=== PATIENT | male | born 1970 | race Caucasian/White ===

== ENCOUNTER 2024-02-03 12:39 | Emergency (ER) | payer OTHER ==
[2024-02-03] MEDS ORDERED: Pantoprazole 40 MG VIAL ONE (12:48)
[2024-02-03] MEDS ORDERED: Ondansetron PF 4 MG/2 ML Vial ONE (12:48)
[2024-02-03 13:20] LABS: PTT 23.6 sec (22.9-36.1); Prothrombin Time 13.1 sec (12.0-14.7)
[2024-02-03 13:25] LABS: Hematocrit 48.7 % (42.0-52.0); Hemoglobin 17.7 g/dL (14.0-18.0); Mean Corpuscular HGB CONC 36.3 g/dL (32.0-36.0); Mean Corpuscular Hemoglobin 32.6 pg (27.0-31.0); Mean Corpuscular Volume 89.9 fl (78.0-98.0); Mean Platelet Volume 7.5 fL (7.4-10.4); Platelet Count 264 10x3/uL (130-400); RBC Distribution Width 10.1 % (11.5-14.5); Red Blood Cell (RBC) Count 5.42 mill/uL (4.70-6.10); White Blood Cell (WBC) Count 14.2 10x3/uL (4.8-10.8)
[2024-02-03 13:28] LABS: ALT (SGPT) 22 U/L (8-55); AST (SGOT) 15 U/L (5-34); Albumin 4.4 g/dL (3.5-5.0); Alkaline Phosphatase 73 U/L (40-110); Anion Gap 17 mmol/L (10-20); BUN (Urea Nitrogen) 18 mg/dL (8.4-25.7); Bilirubin, Total 0.9 mg/dL (0.2-1.2); Calc. Creatinine Clearance 0 mL/min (70-130); Calcium 10.2 mg/dL (7.8-10.44); Carbon Dioxide 20 mmol/L (22-29); Chloride 103 mmol/L (98-107); Estimated GFR 72; Globulin 3.8 g/dL (2.4-3.5); Glucose 189 mg/dL (70-105); Potassium 4.3 mmol/L (3.5-5.1); Protein, Total 8.2 g/dL (6.0-8.3); Sodium 136 mmol/L (136-145)
[2024-02-03 14:05] LABS: Troponin I Less than 0.010 ng/mL (< 0.028)
[2024-02-03 15:03] LABS: MDiff Complete? YES
[2024-02-03 15:15] LABS: Band 2 % (5-11); Hypersegmented Neutrophil SLIGHT; Lymphocytes 6 % (21-51); Monocytes 1 % (0-10); Neutrophil 91 % (42-75); Platelet Adequacy Comment Appears Adequate; RBC Morph Comment Within Normal Limits; Vacuoles SLIGHT
== END 2024-02-03 15:58 | disposition short-term general hospital (02) ==
LOC: NAV ERS 12:39
DX: K92.2 Gastrointestinal hemorrhage, unspecified (principal); R55 Syncope and collapse; I10 Essential (primary) hypertension; F17.220 Nicotine dependence, chewing tobacco, uncomplicated
CPT/HCPCS: 80053; 82274; 84484; 85025; 85610; 85730; 86850; 86900; 86901; 93005; 96374; 96375; J2405; J2470